=== PATIENT | male | born 1940 | race Caucasian/White ===

== ENCOUNTER 2022-08-15 09:50 | Outpatient (CLI) | payer MEDICARE, SELFPAY ==
--- NOTE | 2022-08-15 10:08 | ECHO_ITS ---
Patient Info Name: Rinku Shepherd Age: 82 years : 1940 Gender: Male Ht: 73 in Wt: 230 lbs BSA: 2.34 m2 HR: 66 bpm BP: 149 / 84 mmHg Heart Rhythm: Sinus Rhythm Technical Quality: Fair Exam Date: 08/15/2022 10:35 AM Exam Location: [facility] Patient Status: Outpatient Admit Date: 08/15/2022 Staff Ordering Physician: Ayden Adrian MD Liquefied Petroleum Gasfitter: Nasim Ambriz RDCS Attending Provider: Ayden Adrian MD Referring Physician: Kaylah DAWSON; Exam Type: CA echo doppler color flow Study Info Indications I71.9 - Aortic aneurysm of unspecified site, without rupture Complete two-dimensional, color flow and Doppler transthoracic echocardiogram is performed. Summary 1. Complete two-dimensional, color flow and Doppler transthoracic echocardiogram is performed. 2. Left ventricular chamber dimension is normal. 3. Left ventricular systolic function is normal, estimated at 60-65%. 4. There is mildly increased left ventricular wall thickness. 5. The left ventricular diastolic function is grade I diastolic dysfunction. 6. Left atrial chamber dimension is mildly enlarged. 7. There is moderate aortic valve regurgitation. 8. There is mild tricuspid valve regurgitation. Left Ventricle Left ventricular chamber dimension is normal. Left ventricular systolic function is normal, estimated at 60-65%. There is mildly increased left ventricular wall thickness. The left ventricular diastolic function is grade I diastolic dysfunction. Right Ventricle Right ventricular chamber dimension is normal. Right ventricular systolic function is normal. Left Atria Left atrial chamber dimension is mildly enlarged. Right Atria Right atrial chamber dimension is normal. Atrial Septum Intact interatrial septum visualized by color flow imaging. Aortic Valve The aortic valve is trileaflet. There is mild aortic valve sclerosis. There is no aortic valve stenosis. There is moderate aortic valve regurgitation. Pulmonic Valve The pulmonic valve is normal. There is no pulmonic valve stenosis. There is trace pulmonic regurgitation. Mitral Valve The mitral valve has thickened leaflets. There is no mitral valve stenosis. There is trace mitral valve regurgitation. Tricuspid Valve The tricuspid valve leaflets are normal. There is no significant tricuspid valve stenosis. There is mild tricuspid valve regurgitation. Pericardium/Pleural The pericardium appears normal. There is no pericardial effusion. Inferior Vena Cava Normal inferior vena cava with >50% collapse upon inspiration consistent with normal right atrial pressure, 5 mmHg. Aorta The aortic root size at the sinus of Valsalva is moderately dilated. The prox ascending aorta size is moderately dilated. Left Ventricular Outflow Tract Name Value Normal LVOT 2D LVOT Diameter 2.2 cm LVOT Doppler LVOT Peak Gradient 4 mmHg LVOT Mean Gradient 2 mmHg LVOT VTI 19 cm LVOT VTI/AV VTI Ratio 0.8 LVOT S
== END 2022-08-15 09:51 | disposition home or self-care (01) ==
LOC: ANHCARD 09:55
PROVIDERS: PCP Family Medicine; Visit Provider Family Medicine
DX: I71.9 Aortic aneurysm of unspecified site, without rupture (principal); I35.1 Nonrheumatic aortic (valve) insufficiency; I36.2 Nonrheumatic tricuspid (valve) stenosis with insufficiency
CPT/HCPCS: 93306

== ENCOUNTER 2022-12-18 10:11 | Outpatient (CLI) | payer MEDICARE, SELFPAY ==
--- NOTE | ~2022-12-18 | CT_ITS ---
Clinical Indication: Aortic aneurysm CT Scan of the Chest with Contrast: Technique: Contiguous sections were acquired throughout the chest after intravenous administration of 100 cc of Omnipaque 350. Dose reduction technique was used on this scan by utilizing automated expos ure control and iterative reconstruction technique. The dose-length product (DLP) was 853.50 mGy-cm. Findings: There is no evidence of any significant mediastinal, hilar or axillary lymphadenopathy. There is no f illing defect in the pulmonary arterial tree to suggest pulmonary embolus. Ascending aorta measures u p to 5.1 cm in maximum diameter. No dissection. Coronary artery calcifications are present. There is no evidence of pleural or pericardial effusion. The lungs are clear. No pulmonary nodules or infiltrates are noted. Images through the upper abdomen reveal multiple calcified gallstones. Subacute to chronic fracture d eformity of the right clavicular head noted. Impression: Ascending aortic aneurysm measuring 5.1 cm in maximum diameter. Cholelithiasis. Subacute to chronic fracture deformity of the right clavicular head. Reviewed, dictated and finalized at [facility]. WEB DEVELOPER Impression: Ascending aortic aneurysm measuring 5.1 cm in maximum diameter. Cholelithiasis. Subacute to chronic fracture deformity of the right clavicular head.
[2022-12-18 10:41] LABS: Estimated Glomerular Filt Rate 53
== END 2022-12-18 10:12 | disposition home or self-care (01) ==
PROVIDERS: PCP Family Medicine; Visit Provider Internal Medicine Cardiovascular Disease
DX: I71.40 Abdominal aortic aneurysm, without rupture, unspecified (principal); K80.20 Calculus of gallbladder without cholecystitis without obstruction
CPT/HCPCS: 71275; Q9967

== ENCOUNTER 2023-04-22 15:57 | Emergency (ER) | payer MEDICARE, SELFPAY ==
[2023-04-22 16:10] VITALS: BP 155/66; PULSE 61; RESP 19; TEMP 36.4; O2SAT 98
--- NOTE | 2023-04-22 19:23 | ED.GENADULT ---
HPI - General Adult General Chief complaint: Extremity Injury, Lower Stated complaint: left calf swelling Time Seen by Provider: 04/22/23 19:01 History of Present Illness HPI narrative: This is an 82-year-old male with factor 5 Leiden on Coumadin presenting 4 days after a fall. Patient landed on his buttocks and slid down several stairs. He had no injuries at the time of the fall and has been doing well except he has noticed that he has had some increased pain in his left leg. Now he has developed some swelling of the calf and he is concerned that he may have a DVT. Patient has been on Coumadin for 25 years and typically has very stable INRs. His INR was last checked on Sunday and he assumes that is normal as he did not receive a follow-up call from his physician's office. Patient has been ambulatory since the incident has been performing his activities of daily living without difficulty. Related Data Home Medications Medication Instructions Recorded Confirmed acetaminophen 500 mg tablet 500 mg PO Q6H PRN 04/18/22 12/21/22 (Tylenol Extra Strength) famotidine 20 mg tablet 20 mg PO DAILY 04/18/22 12/21/22 zolmitriptan 5 mg tablet 5 mg PO ONCE PRN 04/18/22 12/21/22 Allergies Allergy/AdvReac Type Severity Reaction Status Date / Time No Known Allergies Allergy Verified 12/21/22 12:44 [facility] Past Medical History Medical History (Updated 04/22/23 @ 19:44 by Joseph Adler MD) Aortic aneurysm Arthritis Bereavement BMI greater than 30 Chronic fatigue DVT (deep venous thrombosis) Essential hypertension Factor V Leiden Mixed hyperlipidemia Surgical History Surgical History History of knee replacement procedure of left knee History of knee replacement procedure of right knee Family History Family History Other Hypertension Social History Social History Smoking status: Never smoker Alcohol intake: current Lack of Transportation: No Lack of Food: Never True Current Housing: I Have Housing Concerned About Future Housing: No Difficulty Paying Gas/Electric Bills: No Difficulty Paying for Meds: No Currently Unemployed: No Education: Master's Degree or Higher Difficulty w/ Childcare or Family Care: No Exam Narrative: APPEARANCE: No apparent distress. A&O x3 Head: atraumatic. EYES: EOMI, NOSE: Atraumatic NECK: Trachea midline RESPIRATORY: No increased rate of breathing CARDIOVASCULAR: RRR, +2 edema of the left calf, bruising behind the left knee ABDOMINAL: Non-distended MUSCULOSKELETAl: No obvious deformities , no midline L-spine tenderness NEURO: Alert. motor sensation, strength and cerebellar function intact to lower extremities. Patient can ambulate with no difficulty. SKIN:: Warm, dry. Normal color PSYCHIATRIC: Normal affect point of care DVT ultrasound of the Left leg showed a partially occlusive DVT in the common femoral vein Course Vital Signs Vital signs: Vital Signs Temperature 97.5 F L 04/22/23 16:10 Pulse Rate 61 04/22/23 16:10 Respiratory Rate 19 04/22/23 16:10 Blood Pressure 155/66 H 04/22/23 16:10 Pulse Oximetry 98 04/22/23 16:10 Oxygen Delivery Room Air 04/22/23 16:10 Temperature 97.5 F L 04/22/23 16:10 Pulse Rate 61 04/22/23 16:10 Respiratory Rate 19 04/22/23 16:10 Blood Pressure 155/66 H 04/22/23 16:10 Pulse Oximetry 98 04/22/23 16:10 Oxygen Delivery Room Air 04/22/23 16:10 Medical Decision Making [facility] Narrative Medical decision making narrative: -Presentation: 82-year-old male with a history of factor V Leiden on Coumadin presenting with swelling of his left calf after a fall 4 days ago. His family are concerned that he may have developed a DVT. INR was obtained on Sunday which was in the therapeutic range. -DDX includes b
== END 2023-04-22 20:05 | disposition home or self-care (01) ==
PROVIDERS: Emergency Provider Emergency Medicine; PCP Family Medicine
DX: I82.412 Acute embolism and thrombosis of left femoral vein (principal); D68.51 Activated protein C resistance; E78.2 Mixed hyperlipidemia; I10 Essential (primary) hypertension; M19.90 Unspecified osteoarthritis, unspecified site; Z86.718 Personal history of other venous thrombosis and embolism; Z79.01 Long term (current) use of anticoagulants; Z96.653 Presence of artificial knee joint, bilateral
CPT/HCPCS: 99281; 99282

== ENCOUNTER 2023-04-23 07:24 | Outpatient (CLI) | payer MEDICARE, SELFPAY ==
--- NOTE | ~2023-04-23 | US_ITS ---
EXAMINATION: US venous doppler [facility] DATE: 04/23/2023 08:46 INDICATION: Right lower limb swelling TECHNIQUE: Grayscale ultrasound images without and with compression and Doppler ultrasound images of the bilateral lower extremity veins were obtained. COMPARISON: None. FINDINGS: The right femoral vein and popliteal vein are partially compressible with peripheral nonocclusive thr ombus with linear echogenic margins which can be seen with chronic thrombosis. The visualized portion s of right common femoral vein, profunda (deep) femoral vein, posterior tibial veins, peroneal veins, gastrocnemius vein and greater saphenous vein outflow are patent. Similar appearance of peripheral nonocclusive thrombus at the left common femoral vein, proximal left femoral vein [id number] left popliteal vein. The visualized portions of left profunda femoral ve in, femoral vein, posterior tibial veins, peroneal veins and greater saphenous vein outflow are paten t. IMPRESSION: 1. [id number] nonocclusive peripheral thrombus in both thighs. Without earlier imaging age canno t be definitively established however patient does have a known history of chronic thrombus in the we ll-defined peripheral linear echogenic margins are suggestive of chronic thrombosis. I discussed this finding with Dr. Leary at 9:00 AM. The patient is currently therapeutic on chronic coumadin. At Dr Agustin Leary's request, I discussed the findings with Mr. Shepherd along with the recommendation to foll ow-up with his primary Dr. Adrian to whom the report will be faxed. Reviewed, dictated and finalized at location A. IMPRESSION: 1. [id number] nonocclusive peripheral thrombus in both thighs. Without ear lier imaging age cannot be definitively established however patient does have a known history of chronic thrombus in the well-defined peripheral linear echoge zaire margins are suggestive of chronic thrombosis. I discussed this finding with Dr. Leary at 9:00 AM. The patient is currently therapeutic on chronic coumad in. At Dr. Leary's request, I discussed the findings with Mr. Shepherd along with the recommendation to follow-up with his primary Dr. Adrian to whom the report will be faxed.
== END 2023-04-23 07:25 | disposition home or self-care (01) ==
PROVIDERS: PCP Family Medicine; Visit Provider Emergency Medicine
DX: M79.89 Other specified soft tissue disorders (principal); I82.4Y3 Acute embolism and thrombosis of unspecified deep veins of proximal lower extremity, bilateral
CPT/HCPCS: 93970

== ENCOUNTER 2023-07-14 16:11 | Emergency (ER) | payer MEDICARE, SELFPAY ==
[2023-07-14 16:14] VITALS: BP 165/85; PULSE 77; RESP 18; TEMP 36.6; O2SAT 96
--- NOTE | 2023-07-14 16:26 | ED.EXTPRO ---
HPI - Extremity Problem General Chief complaint: Extremity Problem,Nontraumatic Stated complaint: left arm bruising Time Seen by Provider: 07/14/23 16:26 Source: patient Mode of arrival: ambulatory Limitations: no limitations History of Present Illness HPI Narrative: patient is a pleasant 82 yo male with a past medical hx of factor 5 Leiden on Coumadin who presents to the ED today for evaluation of waking up today with a very large bruise to his left upper arm. Denies any known injury. Denies numbness or tingling left upper extremity. Denies any fever or chills. Denies warmth. Denies decreased range of motion. Denies pain. Related Data Home Medications Medication Instructions Recorded Confirmed acetaminophen 500 mg tablet 500 mg PO Q6H PRN 04/18/22 07/10/23 (Tylenol Extra Strength) zolmitriptan 5 mg tablet 5 mg PO ONCE PRN 04/18/22 07/10/23 Allergies Allergy/AdvReac Type Severity Reaction Status Date / Time No Known Allergies Allergy Verified 07/14/23 16:16 Review of Systems Review of Systems: CONSTITUTIONAL: Denies fever, chills, or sweats. EYES: Denies visual changes, redness, or discharge. ENT: Denies rhinorrhea, congestion, sore throat, or otalgia. CARDIOVASCULAR: Denies chest pain, palpitations, or edema. RESPIRATORY: Denies cough or dyspnea. SKIN: Denies rash or itching. large area of bruising to entire left arm. MUSCULOSKELETAL: Denies back pain, joint pain, or myalgia. no pain to left upper extremity. NEUROLOGIC: Denies headache, numbness, or weakness. PSYCHIATRIC: Denies anxiety or depression. All systems reviewed & are unremarkable except as noted in HPI and below PMFSH Past Medical History Medical History Aortic aneurysm Arthritis Bereavement BMI greater than 30 Chronic fatigue DVT (deep venous thrombosis) Essential hypertension Factor V Leiden Knee pain, left Mixed hyperlipidemia Surgical History Surgical History History of knee replacement procedure of left knee History of knee replacement procedure of right knee Family History Family History Other Hypertension Social History Social History Smoking status: Never smoker Alcohol intake: current Substance use: never Substance use type: does not use Lack of Transportation: No Lack of Food: Never True Current Housing: I Have Housing Concerned About Future Housing: No Difficulty Paying Gas/Electric Bills: No Difficulty Paying for Meds: No Currently Unemployed: No Education: Master's Degree or Higher Difficulty w/ Childcare or Family Care: No Living arrangements: alone Exam Narrative: GENERAL: Well-appearing, elderly male resting on stretcher, well-nourished, and in no acute distress. HEAD: Normocephalic, atraumatic. EYES: PERRLA and EOMI. ENT: Nares clear, no rhinorrhea or epistaxis. Mucous membranes moist. NECK: Supple. CHEST: Clear to auscultation. No respiratory distress. HEART: Regular rate and rhythm. No murmur heard. Normal peripheral pulses. EXTREMITIES: Normal range of motion. No edema. no pain to LUE. SKIN: Warm, dry, no rash. there is large area of superficial bruising noted to the left upper arm that extends from the mid deltoid distally to the wrist. no warmth noted. no open wound. NEURO: No focal deficits. Alert and oriented x3. CN II-XII grossly intact. distal NV intact to RUE. PSYCH: Normal mood and affect. Course VICE PRESIDENT OF MANUFACTURING/PA Physician Supervision discussed with ER attending DR. Barry, agrees with plan of care. Reevaluation(s) Reevaluation #1: resting, no distress noted. discussed plan of care. talking with patient and he stated that he remembered that he was carrying heavy cardboard in his arms and maybe this is what did the bruising. Date: 07/14/23 T
[2023-07-14 17:34] LABS: Basophils Percent Auto 0.2 % (0.2-1.2); Eosinophils Absolute Auto 0.2 K/mm3 (0-0.3); Eosinophils Percent Auto 2.5 % (0-4.4); Hematocrit 49.4 % (42.0-52.0); Hemoglobin 16.2 g/dL (14.0-18.0); Immature Granulocyte Absolute 0.03 K/mm3 (0.00-0.031); Immature Granulocyte Percent A 0.5 % (0-0.5); Immature Platelet Fraction Pct 2.4 % (0.9-11.2); Lymphocytes Absolute Auto 1.45 K/mm3 (0.9-3.2); Lymphocytes Percent Auto 22.2 % (18.3-44.2); Mean Corpuscular HGB Conc 32.8 g/dl (32-36); Mean Corpuscular Hemoglobin 31.1 pg (26-34); Mean Corpuscular Volume 94.8 fl (80-100); Mean Platelet Volume 9.7 fl (7.4-10.4); Monocytes Absolute Auto 0.7 K/mm3 (0.1-0.6); Monocytes Percent Auto 10.9 % (2.6-8.5); Neutrophils Absolute Auto 4.2 K/mm3 (1.3-6.7); Neutrophils Percent Auto 63.7 % (45.5-73.1); Platelet Count Result 113 k/mm3 (150-375); Red Blood Count 5.21 M/mm3 (4.6-6.20); Red Cell Distribution Width 12.9 % (11.5-14.5); White Blood Count 6.5 K/mm3 (4.5-10.0)
[2023-07-14 17:45] LABS: INR 2.6; Prothrombin Time 29.3 Seconds (11.1-14.7)
[2023-07-14 17:46] LABS: Partial Thromboplastin Time 37.7 SECONDS (22.3-36.8)
[2023-07-14 17:47] LABS: Fibrinogen 372 mg/dl (215-510)
[2023-07-14 17:49] LABS: Alanine Aminotransferase 43 U/L (6-50); Alkaline Phosphatase 87 U/L (38-126); Anion Gap 9 mmol/L (8-16); Aspartate Amino Transferase 38 U/L (17-59); Bilirubin,Total 1.7 mg/dL (0.2-1.3); Blood Urea Nitrogen 25 mg/dL (9-20); Calcium 8.5 mg/dL (8.4-10.2); Carbon Dioxide 23 mmol/L (22-30); Chloride 107 mmol/L (98-107); Estimated CRCL calculation 42 ml/min; Estimated Glomerular Filt Rate 42; Glucose 104 mg/dL (65-110); Potassium 4.6 mmol/L (3.4-5.0); Sodium 139 mmol/L (137-145)
[2023-07-14 17:52] LABS: D Dimer 0.39 ug/mL (<0.48)
[2023-07-14 19:27] VITALS: BP 158/79; PULSE 73; RESP 17; O2SAT 98
== END 2023-07-14 19:08 | disposition home or self-care (01) ==
PROVIDERS: Emergency Provider Nurse Practitioner; PCP Family Medicine
DX: S40.022A Contusion of left upper arm, initial encounter (principal); I10 Essential (primary) hypertension; D68.51 Activated protein C resistance; M19.90 Unspecified osteoarthritis, unspecified site; Z86.718 Personal history of other venous thrombosis and embolism; Z79.01 Long term (current) use of anticoagulants; X58.XXXA Exposure to other specified factors, initial encounter
CPT/HCPCS: 36415; 80053; 85025; 85055; 85380; 85384; 85610; 85730; 99283

== ENCOUNTER 2023-10-01 12:24 | Outpatient (CLI) | payer MEDICARE, SELFPAY ==
--- NOTE | ~2023-10-01 | XR_ITS ---
EXAMINATION: XR foot LT 2V DATE: 10/01/2023 12:59 INDICATION: Left great toe pain. TECHNIQUE: 2 views of left foot were obtained. COMPARISON: None. FINDINGS: Bone alignment is normal. No fracture. There is severe osteoarthritis of first metatarsopha langeal joint and mild osteoarthritis of some of the interphalangeal joints and midfoot joints. There is enthesophytes at the posterior and plantar aspects of calcaneal tuberosity. There are dystrophic calcifications around first metatarsophalangeal joint. IMPRESSION: 1. Polyarticular osteoarthritis. Reviewed, dictated and finalized at location E. EXPERT
[2023-10-01 13:59] LABS: Uric Acid 5.7 mg/dL (3.5-8.5)
== END 2023-10-01 12:25 | disposition home or self-care (01) ==
PROVIDERS: PCP Family Medicine; Visit Provider Nurse Practitioner Family
DX: M19.072 Primary osteoarthritis, left ankle and foot (principal)
CPT/HCPCS: 36415; 73620; 84550

== ENCOUNTER 2024-06-16 09:17 | Outpatient (CLI) | payer MEDICARE, SELFPAY ==
[2024-06-16 09:58] LABS: Hematocrit 46.2 % (42.0-52.0); Hemoglobin 15.4 g/dL (14.0-18.0); Immature Platelet Fraction Pct 3.2 % (0.9-11.2); Mean Corpuscular HGB Conc 33.3 g/dl (32-36); Mean Corpuscular Hemoglobin 32.2 pg (26-34); Mean Corpuscular Volume 96.5 fl (80-100); Mean Platelet Volume 10.1 fl (7.4-10.4); Platelet Count Result 97 k/mm3 (150-375); Red Blood Count 4.79 M/mm3 (4.6-6.20); Red Cell Distribution Width 13.1 % (11.5-14.5); White Blood Count 4.9 K/mm3 (4.5-10.0)
[2024-06-16 13:50] LABS: Alanine Aminotransferase 36 U/L (6-50); Albumin Level 3.8 g/dL (3.5-5.1); Alkaline Phosphatase 82 U/L (38-126); Anion Gap 7 mmol/L (4-12); Aspartate Amino Transferase 36 U/L (17-59); Blood Urea Nitrogen 23 mg/dL (9-20); Calcium 8.7 mg/dL (8.4-10.2); Carbon Dioxide 27 mmol/L (22-30); Chloride 105 mmol/L (98-107); Cholesterol 93 mg/dL (0-200); Estimated Glomerular Filt Rate 53; Glucose 98 mg/dL (65-110); HDL Direct 32 mg/dL; Potassium 4.4 mmol/L (3.4-5.0); Sodium 139 mmol/L (137-145); Triglycerides 88 mg/dL (<150)
[2024-06-16 14:01] LABS: LDL Cholesterol Direct 42 mg/dL
[2024-06-16 14:20] LABS: Prostate Specific Antigen 3.8 ng/mL (< OR = 4.0)
== END 2024-06-16 09:18 | disposition home or self-care (01) ==
PROVIDERS: PCP Family Medicine; Visit Provider Family Medicine
DX: F41.9 Anxiety disorder, unspecified (principal); E78.2 Mixed hyperlipidemia; Z12.5 Encounter for screening for malignant neoplasm of prostate; Z13.220 Encounter for screening for lipoid disorders; N18.31 Chronic kidney disease, stage 3a
CPT/HCPCS: 36415; 80048; 80061; 80076; 84153; 84443; 85027; 85055; G0103

== ENCOUNTER 2024-08-22 12:21 | Outpatient (CLI) | payer MEDICARE, SELFPAY ==
--- NOTE | ~2024-08-22 | US_ITS ---
EXAMINATION: US venous doppler UE RT DATE: 08/22/2024 13:19 INDICATION: Right upper limb pain. Personal history of other venous thrombosis. TECHNIQUE: Grayscale ultrasound images without and with compression and Doppler ultrasound images of the right upper extremity veins were obtained. COMPARISON: None. FINDINGS: The visualized portions of the right internal jugular vein, subclavian vein, axillary vein, brachial veins, basilic vein, cephalic vein, radial vein, and ulnar vein are patent. There is a complete tear of proximal biceps tendon. IMPRESSION: 1. No deep venous thrombosis. 2. Complete tear of proximal right biceps tendon. Reviewed, dictated and finalized at location A.
== END 2024-08-22 12:22 | disposition home or self-care (01) ==
LOC: ANHIMG 12:21
PROVIDERS: PCP Family Medicine; Visit Provider Physician Assistant Medical
DX: S46.211A Strain of muscle, fascia and tendon of other parts of biceps, right arm, initial encounter (principal); X58.XXXA Exposure to other specified factors, initial encounter; S40.021A Contusion of right upper arm, initial encounter; Z86.718 Personal history of other venous thrombosis and embolism
CPT/HCPCS: 93971

== ENCOUNTER 2024-08-27 14:54 | Outpatient (CLI) | payer MEDICARE, SELFPAY ==
--- NOTE | ~2024-08-27 | XR_ITS ---
XR shoulder RT min 2V Ordering provider: Bryce Jiménez MD History: . S46.211A - Strain of muscle, fascia and tendon of other p... . Comparison: None. FINDINGS: BONES: No acute fracture or dislocation. Degenerative changes in the greater tuberosity of the humeru s. JOINT SPACES: The acromioclavicular joint is normal. The glenohumeral joint is normal. Spurring in the acromion process. SOFT TISSUES: Normal. IMPRESSION: No acute osseous abnormality right shoulder. Reviewed, dictated and finalized at location A.
== END 2024-08-27 14:55 | disposition home or self-care (01) ==
LOC: ANHIMG 14:55
PROVIDERS: PCP Family Medicine; Visit Provider Orthopaedic Surgery
DX: S46.211A Strain of muscle, fascia and tendon of other parts of biceps, right arm, initial encounter (principal); X58.XXXA Exposure to other specified factors, initial encounter
CPT/HCPCS: 73030

== ENCOUNTER 2025-10-06 12:30 | Outpatient (RCR) | payer MEDICARE, SELFPAY ==
--- NOTE | 2025-08-13 10:05 | OPREHPOC ---
Outpatient Therapy Plan of Care This is a Multidisciplinary Plan of Care that may contain components documented by all disciplines (PT, OT, and ST.) PT Problem 1 PT Problem #1 Knowledge Deficit PT Goal 1 Goal / Goal Update 1* independent with HEP 2* wear schedule/use of lower leg compression garments Target Visit 10 PT Problem 2 PT Problem #2 Pain PT Goal 1 Goal / Goal Update 1* decrease pain of L LE to 4/10 at worst Target Visit 10 PT Problem 3 PT Problem #3 Impaired Flexibility PT Goal 1 Goal / Goal Update 1* improve L knee flexion to 105', to improve ability with sit / stand transfer 2* in sitting, pt able to reach R and L foot to don/doff compression socks Target Visit 10 PT Problem 4 PT Problem #4 Impaired Strength PT Goal 1 Goal / Goal Update 1* increase strength of R and L LE to gross 4/5 to improve transfer and mobility skills 2* sit/stand without use of UE from 18 seat 3* pt able to don/doff R and L knee high compression garments independently Target Visit 10 PT Problem 5 PT Problem #5 Impaired Functional Mobility PT Goal 1 Goal / Goal Update 1* 2 minute walking test distance of 375' to improve community ambulation 2* 5 reps sit/stand time of 21 seconds 3* Tinetti balance/gait score of 22/28, to decrease risk for falls Target Visit 10
--- NOTE | 2025-08-13 10:05 | PTOPEVAL1 ---
Assessment and note entered by Carin Aponte, PT Evaluation Information Assessment Status Evaluation ICD-10 Condition Codes (PT) Pain in left hip M25.552,Pain in right knee M25. 561,Pain in left knee M25.562,Difficulty Walking R26.2,Abnormalities of gait and mobility R26.9, Weakness R53.1 Onset Jul 30, 2025 Subjective Information fell on July 30, landed L side- bruising over L buttock and leg, was at home- in kitchen, toe caught on chair have fallen 2x in the past 6 months; history of chronic swelling in both legs and pain- bilateral LE DVTs, wear compression socks problems getting up and down from chairs, bed and toliet; recently got elevated seat for toliet; was receiving out pt therapy for leg strengthening before fall -------- activity: live home alone; occasionally use of wheeled walker; independent with self care and light home tasks; have basement stairs, with 1 railing- feels comfortable and has laundry downstairs goal: not have pain in legs; be able to put on his compression socks again Reported Pain Level Pain Score Self Report Additional Pain Score Comments bruising and pain over L buttock, lateral hip, knee and lower leg pain range of the past week 2-7/10 stiff bilateral knees - history of TKRs Assessment PT Clinical Summary Donovan has the diagnosis of fall, LE weakness, decreased mobility. He lives alone and does not use an assistive device. Modified Falls Efficacy Scale rating of 112/140=8 of 10. Prior to this fall, he was receiving out pt PT at another facility for leg strengthening, but stopped after the fall. With the evaluation: weakness of R and L LE, with decreased knee ROM; bruising and pain over L LE, stiffness of knees s/p TKRs; 5 reps sit/stand with use of 1 UE in 28 seconds; Tintetti balance score of 12/28= high risk for falls; 2 minute walking test distance of 310' without device and poor pattern. The compression knee high socks need addressed: have had on for 2 weeks, unable to get off/on due to L leg and hip pain. Education to remove daily and he is going to seek hiring a personal banking representative at home for help. Skilled PT services are indicated for strengthening of LE, improve transfer and gait/ balance skills, to improve mobility and decrease risk for falls; use of intermittent compression pump to address swelling and bruising of L leg, education for compression socks and donning/ doffing devices to improve his ability to be independent at home alone. Plan of Care Interventions Hot Pack/Cold Pack,Intermittent Compression Pump, Neuro Re-education,Patient/Caregiver Education, Therapeutic Activities,Therapeutic Exercise PT Services Indicated Yes Treatment Frequency and 1-2x/wk for 10 visits Duration These treatments will address the objective and functional deficits as defined above. The patient will be advanced safely and appropriately in order for the patient to progress towards his/her prior level of function. Additional exercises will be introduced and as well as a comprehensive home exercise program upon discharge, if needed, ?to ensure carryover of functional gains achieved in the clinic. This treatment plan has been reviewed and agreement upon by the patient.
--- NOTE | 2025-09-23 11:48 | PCPTNOTE ---
pt called and canceled due to illness.
--- NOTE | 2025-10-06 13:26 | OPREHPOC ---
Outpatient Therapy Plan of Care This is a Multidisciplinary Plan of Care that may contain components documented by all disciplines (PT, OT, and ST.) PT Problem 1 PT Problem #1 Knowledge Deficit PT Goal 1 Goal / Goal Update 1* independent with HEP 2* wear schedule/use of lower leg compression garments 10-06-25: d/c goals met Target Visit 10 Progress Met PT Problem 2 PT Problem #2 Pain PT Goal 1 Goal / Goal Update 1* decrease pain of L LE to 4/10 at worst 10-06-25: d/c goal met Target Visit 10 Progress Met PT Problem 3 PT Problem #3 Impaired Flexibility PT Goal 1 Goal / Goal Update 1* improve L knee flexion to 105', to improve ability with sit / stand transfer 2* in sitting, pt able to reach R and L foot to don/doff compression socks 10-06-25: d/c goals met Target Visit 10 Progress Met PT Problem 4 PT Problem #4 Impaired Strength PT Goal 1 Goal / Goal Update 1* increase strength of R and L LE to gross 4/5 to improve transfer and mobility skills 2* sit/stand without use of UE from 18 seat 3* pt able to don/doff R and L knee high compression garments independently 10-06-25: d/c goals met Target Visit 10 Progress Met PT Problem 5 PT Problem #5 Impaired Functional Mobility PT Goal 1 Goal / Goal Update 1* 2 minute walking test distance of 375' to improve community ambulation 2* 5 reps sit/stand time of 21 seconds 3* Tinetti balance/gait score of 22/28, to decrease risk for falls 10-06-25: d/c goals met, except #1 is 270' Target Visit 10 Progress Partially Met
--- NOTE | 2025-10-06 13:26 | PTOPDC ---
Assessment and note entered by Carin Aponte, PT Assessment Status Discharge ICD-10 Condition Codes (PT) Pain in left hip M25.552,Pain in right knee M25. 561,Pain in left knee M25.562,Difficulty Walking R26.2,Abnormalities of gait and mobility R26.9, Weakness R53.1 Onset Jul 30, 2025 Subjective Information just getting over being sick, weak since being ill ; feel better, but still kind of weak from being sick; have not been walking and doing as much since ill; agree to discharge therapy and keep up with the exercises at home. Reported Pain Level Pain Score 0: Self Report Additional Pain Score Comments no pain in legs, but legs are weak; wearing the compression socks Assessment PT Clinical Summary Donovan has received a total of 10 PT sessions. Compared to the initial evaluation: he has improved in all areas: decrease LE pain, L knee flexion to 105', sit/stand without use of UE, with 5 reps in 21 seconds; Tinetti balance/gait score of 24/2, improved gait pattern with heel strike and larger step length bilateral and education completed for HEP and safety with mobility. He is independent with donning and doffing his knee high compression socks. Self assessment with modified efficacy falls scale average rating of 9/10, with 10/10= completely confident with activity. The only goal he did not achieve was 2 minute walking test distance, from 310 to 270'; Discharge PT. He is to continue with his HEP and walking tolerance as able. Plan of Care PT Services Indicated No
== END 2025-10-06 14:46 | disposition home or self-care (01) ==
LOC: ANHPT 12:30
PROVIDERS: PCP Family Medicine; Visit Provider Family Medicine
DX: R26.81 Unsteadiness on feet (principal); I82.409 Acute embolism and thrombosis of unspecified deep veins of unspecified lower extremity; M79.605 Pain in left leg
CPT/HCPCS: 97110; 97140; 97162; 97530